=== PATIENT | female | born 1965 | race Caucasian/White ===

== ENCOUNTER 2016-06-06 17:45 | Emergency (ER) ==
[2016-06-06 18:02] VITALS: BP 104/71; TEMP 99.7; BMI 37.9
--- NOTE | 2016-06-06 18:09 | ED.PDOC ---
General Stated Complaint: feeling weak- soa pain right lateral ribs--unable to cook tonite;dizzy--occ cough --faint crackles to RUL[End]short of air this afternoon 99.7 96 20 98% 104/71 11/16. : 10/29/15 : Patient reports that her elbow to arm hurts since working last night. She reports that she went to sleep and woke up 3 different times and each time there has been pain in forearm and wrist. - Upper Extremity Complaint/Exam: Left, Elbow, Wrist: Tenderness, Limited range of motionED SPLINT APPLICATION .Left wrist sprain. Tramadol HCl [Ultram] 50 mg PO Q6H PRN #25 tablet. Penicillins Adverse Reaction. : 07/05/15 : Been hurting in the left shoulder and elbow, hurts to move and raise, has less gripp in the left hand. : Shoulder Sprain (ED). Needs evaluation for the CTS. Tramadol 50 po bid. Penicillins Adverse Reaction (Verified 07/05/15 21:50). Lisinopril 10 mg PO DAILY 07/05/15 Time Seen by Physician: 18:08 Mode of Arrival: Walk-In Information Source: Patient Exam Limitations: No limitations Nursing and Triage Documentation Reviewed and Agree: No <TERRI TOVAR JR - Last Filed: 06/06/16 18:29> <JÚNIOR GALLEGOS - Last Filed: 06/06/16 19:54> ED Provider: Dr. JÚNIOR GALLEGOS (TERRI TOVAR JR) (EL,JÚNIOR) Chief Complaint: Shortness of Air Primary Care Provider: DR SUSAN SHETES(MOVED BACK HERE PLANNING TO SEE DR FONTANEZ) (TERRI TOVAR JR) Review of Systems - Review Of Systems Constitutional: Reports: Malaise Eyes: Reports: No symptoms Ears, Nose, Mouth, Throat: Reports: No symptoms Respiratory: Reports: Cough, Short of air Cardiac: Reports: Chest pain GI: Reports: Abdominal pain (right lower quadrant), Nausea : Reports: No symptoms Musculoskeletal: Reports: No symptoms Skin: Reports: No symptoms Neurological: Reports: No symptoms Endocrine: Reports: No symptoms Hematologic/Lymphatic: Reports: No symptoms All Other Systems: Other <TERRI TOVAR JR - Last Filed: 06/06/16 18:29> Past Medical History - Past Medical History Previously Healthy: Yes Endocrine: Reports: None Cardiovascular: Reports: Hypertension Respiratory: Reports: None Hematological: Reports: None Gastrointestinal: Reports: None Genitourinary: Reports: None Neuro/Psych: Reports: None Musculoskeletal: Reports: Arthritis, Back Pain Cancer: Reports: None Last Menstrual Period: 3 weeks ago/irregular Other Pertinent Past Medical History: 1990 - Surgical History General Surgical History: Reports: ( 1990), Orthopedic (FEMUR /PELVIS FRACTURE 1988), Other (pelvic surgery , broken bones) - Family History Family History: Reports: Other (MOTHER WITH APPENDICITIS,CHOLECYSTECTOMY AND COLON CANCER AT ABOUT 62YO) - Social History Smoking Status: Current every day smoker, Light tobacco smoker Hx Substance Use: No Alcohol Screening: Occasionally <TERRI TOVAR JR - Last Filed: 06/06/16 18:29> Physical Exam - Physical Exam Appearance: Well-appearing, Obese Pain Distress: Moderate Eyes: JAMIE, EOMI, Conjunctiva clear ENT: Ears normal, Nose normal, Oropharynx normal Neck: Supple Respiratory: Airway patent, Breath sounds clear, Breath sounds equal, Respirations nonlabored Cardiovascular: RRR, Pulses normal, No rub, No murmur GI/: Soft, Tender (rlq and ruq tender both over appendix area and over gall bladder area) Musculoskeletal: Normal strength, ROM intact, No edema, No calf tenderness Skin: Warm, Dry, Normal color Neurological: Sensation intact, Motor intact, Reflexes intact, Cranial nerves intact, Alert, Oriented Psychiatric: Affect appropriate, Mood appropriate <TERRI TOVAR JR - Last Filed: 06/06/16 18:29> Interpretation - Radiology Interpretation Radiology Interpretation By: ED Physician Radiology Results: Negative Exam Interpreted: CXR (POSSIBLE FLUID BLUNTING RIGHT MEDIAL DIAPHRAGM), Other ( ABDOMEN STOOLA ND GAS CONSISTENT WITH NORMAL EXAM) <TERRI TOVAR JR - Last Filed: 06/06/16 18:29> Re-Evaluation - Re-Evaluation Time of Re-Evaluation: 19:52 Status: Improved Vital Signs Stable: Yes Pain Level: 0 Appearance: NAD Lungs: Clear Skin: Warm and Dry Neuro: Alert and Oriented X3 CV: RRR <JÚNIOR GALLEGOS - Last Filed: 06/06/16 19:54> Critical Care Note - Critical Care Note Total Time (mins): 5 <TERRI TOVAR JR - Last Filed: 06/06/16 18:29> - Critical Care Note Total Time (mins): 0 <JÚNIOR GALLEGOS - Last Filed: 06/06/16 19:54> Course <TERRI TOVAR JR - Last Filed: 06/06/16 18:29> - Course Hematology/Chemistry: 06/06/16 18:25 06/06/16 18:25 <JÚNIOR GALLEGOS - Last Filed: 06/06/16 19:54> - Course Orders, Labs, Meds: Lab Review 06/06/16 06/06/16 18:05 18:25 WBC 9.78 RBC 4.56 Hgb 13.7 Hct 41.0 MCV 89.9 MCH 30.0 MCHC 33.4 RDW Coeff of Matteo 12.7 Plt Count 261 Immature Gran % (Auto) 0.4 Neut % (Auto) 58.6 Lymph % (Auto) 34.3 Tift % (Auto) 5.1 Eos % (Auto) 1.3 Baso % (Auto) 0.3 Immature Gran # (Auto) 0.0 Neut # 5.7 Lymph # 3.4 Tift # 0.5 Eos # 0.1 Baso # 0.0 D-Dimer 0.31 Sodium 135 L Potassium 3.8 Chloride 102 Carbon Dioxide 23 Anion Gap 13.8 BUN 15 Creatinine 0.83 Estimated GFR (MDRD) 73.00 BUN/Creatinine Ratio 18.07 Glucose 116 H Lactic Acid 9.1 Calcium 9.1 Total Bilirubin 0.20 AST 14 L ALT 15 Alkaline Phosphatase 96 Total Creatine Kinase 53 Troponin I < 0.0100 B-Natriuretic Peptide 13 Total Protein 7.0 Albumin 3.5 Globulin 3.5 Albumin/Globulin Ratio 1.00 Procalcitonin < 0.05 Urine Color Yellow Urine Clarity Clear Urine pH 5.5 Ur Specific Superior 1.015 Urine Protein Negative Urine Glucose (UA) Negative Urine Ketones Negative Urine Blood Trace-intact Urine Nitrite Negative Urine Bilirubin Negative Urine Urobilinogen 0.2 Ur Leukocyte Esterase Trace Urine Microscopic RBC 2-5 Urine Microscopic WBC 0-2 Ur Squamous Epith Cells 2-5 Orders Category Date Time Status EKG-(ED ONLY) Stat CARDIO 06/06/16 18:08 Completed ED IV/MEDIPORT/POWERPORT .ONCE EMERGENCY 06/06/16 18:08 Active B-TYPE NATRIURETIC PEPTIDE Stat LAB 06/06/16 18:25 Completed BLOOD CULTURE Stat LAB 06/06/16 18:25 Received CBC W/ AUTO DIFF Stat LAB 06/06/16 18:25 Completed COMPREHENSIVE METABOLIC PANEL Stat LAB 06/06/16 18:25 Completed CREATINE KINASE Stat LAB 06/06/16 18:25 Completed D-DIMER Stat LAB 06/06/16 18:25 Completed LACTIC ACID Stat LAB 06/06/16 18:25 Completed PROCALCITONIN Stat LAB 06/06/16 18:25 Completed TROPONIN I Stat LAB 06/06/16 18:25 Completed UA [URINALYSIS C & S IF INDICATED] Stat LAB 06/06/16 18:05 Completed 0.9 % Sodium Chloride [Saline Flush] MEDS 06/06/16 18:08 Ordered 1 syr IVF PRN PRN Meperidine HCl/Pf [Demerol 50 mg/ml Syringe] MEDS 06/06/16 19:12 Discontinued 50 mg IM ONCE STA Promethazine HCl [Phenergan 25 mg/ml Vial] MEDS 06/06/16 19:12 Discontinued 25 mg IM ONCE STA ABDOMEN 1 VIEW Stat RADS 06/06/16 18:12 Taken CHEST, 2 VIEWS PA & LAT Stat RADS 06/06/16 18:[address] ABDOMEN/PELVIS WO CONTRAST Stat RADS 06/06/16 18:16 Completed Medications Generic Name Dose Route Start Last Admin Trade Name Freq PRN Reason Stop Dose Admin Sodium Chloride 1 syr 06/06/16 18:08 Saline Flush IVF PRN PRN To flush IV Discontinued Medications Generic Name Dose Route Start Last Admin Trade Name Freq PRN Reason Stop Dose Admin Meperidine HCl 50 mg 06/06/16 19:12 06/06/16 19:19 Demerol 50 Mg/Ml Syringe IM 06/06/16 19:13 50 mg ONCE STA Administration Promethazine HCl 25 mg 06/06/16 19:12 06/06/16 19:21 Phenergan 25 Mg/Ml Vial IM 06/06/16 19:13 25 mg ONCE STA Administration ms ibanez has ruq pain--relieved in injection) (TASNEEM-ER,JÚNIOR) Vital Signs: Temp Pulse Resp BP Pulse Ox 06/06/16 17:48 99.7 F H 96 H 20 104/71 98 (TERRI TOVAR JR) (TASNEEM-ER,JÚNIOR) Departure <TERRI TOVAR JR - Last Filed: 06/06/16 18:29> - Departure Time of Disposition: 19:53 Pt referred to PMD for follow-up: Yes Disposition Discussed With: Patient <JÚNIOR GALLEGOS - Last Filed: 06/06/16 19:54> - Departure Disposition: HOME SELF-CARE Discharge Problem: Abdominal pain Qualifiers: Abdominal location: right lower quadrant Qualifier Code: (R10.31) Right lower quadrant pain Condition: Good Additional Instructions: see dr fontanez--you will need xrays of the gb as outpatient Allergies/Adverse Reactions: Allergies Penicillins Adverse Reaction (Verified 06/06/16 17:55) Home Medications: Ambulatory Orders Lisinopril 10 mg PO DAILY 07/05/15
[2016-06-06 18:26] LABS: BILIRUBIN,URINE Negative (NEGATIVE); KETONES,URINE Negative (NEGATIVE); LEUKOCYTE ESTERASE ,URINE Trace (NEGATIVE); NITRITE,URINE Negative (NEGATIVE); PH,URINE 5.5 (5-9); PROTEIN,URINE Negative (NEGATIVE); URINE, BLOOD Trace-intact (NEGATIVE)
[2016-06-06 18:27] LABS: ADD URINE MICROSCOPIC YES
[2016-06-06 18:38] LABS: BASOPHILS % (AUTO) 0.3 % (0.0-3.0); EOSINOPHILS # (AUTO) 0.1 K/ul (0.0-0.7); EOSINOPHILS % (AUTO) 1.3 % (0.0-7.0); HEMOGLOBIN 13.7 g/dl (12.0-16.0); IMMATURE GRANULOCYTE % (AUTO) 0.4 % (0.0-5.0); LYMPHOCYTES # (AUTO) 3.4 K/uL (0.60-3.4); LYMPHOCYTES % (AUTO) 34.3 (10.0-50.0); MEAN CORPUSCULAR HGB CONC 33.4 (31.8-35.4); MEAN CORPUSCULAR VOLUME 89.9 fl (81.0-99.0); MONOCYTES # (AUTO) 0.5 K/uL (0.4-2.0); MONOCYTES % (AUTO) 5.1 (0-10); NEUTROPHILS # (AUTO) 5.7 K/ul (2.0-6.9); NEUTROPHILS % (AUTO) 58.6; PLATELET COUNT 261 10^3/uL (140-440); RED BLOOD COUNT 4.56 10^6/ul (4.20-5.40); WHITE BLOOD COUNT 9.78 K/ul (4.6-10.2)
[2016-06-06 19:03] LABS: ALANINE AMINOTRANSFERASE 15 U/L (12-78); ALBUMIN 3.5 g/dL (3.4-5.0); ALKALINE PHOSPHATASE 96 U/L (42-98); ANION GAP 13.8; ASPARTATE AMINO TRANSFERASE 14 U/L (15-37); BLOOD UREA NITROGEN 15 mg/dL (7-18); BUN/CREATININE RATIO 18.07; CALCIUM 9.1 mg/dL (8.2-10.2); CARBON DIOXIDE 23 mmol/L (21-32); CHLORIDE 102 mmol/L (98-107); CREATINE KINASE 53 U/L; CREATININE 0.83 mg/dL (0.60-1.30); GLUCOSE 116 mg/dL (70-110); POTASSIUM 3.8 mmol/L (3.5-5.10); SODIUM 135 mmol/L (136-145)
--- NOTE | 2016-06-06 19:06 | CT ---
EXAM: Noncontrast CT of the abdomen and pelvis. HISTORY: Abdominal pain. COMPARISON: None. TECHNIQUE: Contiguous axial images at 3 mm intervals were obtained from lung bases through the pelv is. No contrast was given. Coronal reformats were reviewed. FINDINGS: The study is limited without contrast. CHEST: The lung bases show no lobar consolidation or effusion. The heart size is within normal leahy its. ABDOMEN: Evaluation of the soft tissue organs is limited without contrast. LIVER: Noncontrast images of the liver show no solid mass lesion or intrahepatic ductal dilatation. BILIARY: The gallbladder is not well distended. No gallstones are noted. No pericholecystic fluid or inflammation. The common bile duct is normal. SPLEEN: The spleen is unremarkable. PANCREAS: The pancreas shows no mass lesion or peripancreatic inflammation. ADRENAL GLANDS: There is a small 1.6 cm low density nodule in the left adrenal gland.. RENAL: The kidneys show no hydronephrosis or nephrolithiasis. There are no obstructing ureteral st ones. No solid mass lesions are identified. RETROPERITONEUM: The aorta is unopacified. No aneurysm is identified. Minimal aortic calcificatio ns are seen. There is no retroperitoneal or mesenteric adenopathy. BOWEL: The bowel is unopacified. There is no obstruction or inflammatory change. There is no free fluid or free air. No significant inflammatory changes are seen. The appendix is identified an d is normal. PELVIS: BLADDER: The bladder is not well distended which limits evaluation.. GENITOURINARY STRUCTURES: The uterus and ovaries are unremarkable. OSSEOUS STRUCTURES: The osseous structures are normal for age. There are postoperative changes in the right hip. IMPRESSION 1. No acute intra-abdominal abnormality. Limited study without contrast. No obstructing ureteral stones. 2. The appendix is normal. 3. Probable small left adrenal adenoma.
[2016-06-06] MEDS ORDERED: DEMEROL 50 MG/ML SYRINGE IM STA (19:12)
[2016-06-06] MEDS ORDERED: PHENERGAN 25 MG/ML VIAL IM STA (19:12)
--- NOTE | 2016-06-07 07:34 | DI ---
EXAM: Chest two views HISTORY: Right chest wall pain, short of air COMPARISON: None TECHNIQUE: Two views of the chest were performed FINDINGS: The lungs are clear, excepting for granulomatous calcification. There is no pleural effu ronald or pneumothorax. The heart is normal in size. The mediastinal contour is normal. There are n o acute abnormalities of the bones. IMPRESSION: No acute cardiopulmonary process.
--- NOTE | 2016-06-07 07:35 | DI ---
EXAM: Single view of the abdomen HISTORY: Right lower quadrant pain. COMPARISON: Same day CT abdomen pelvis FINDINGS: There is stool and gas scattered throughout the colon in the abdomen pelvis. There is int ernal fixation hardware in the right proximal femur. The pelvic ring is intact. There are no dilat ed loops of bowel, air fluid levels, pneumatosis or portal venous gas. The osseous structures are u nremarkable. IMPRESSION: Nonobstructive bowel gas pattern.
== END 2016-06-06 20:10 | disposition home or self-care (01) ==
LOC: ED 17:45
DX: R10.31 Right lower quadrant pain (principal); R10.11 Right upper quadrant pain; R07.9 Chest pain, unspecified; R06.02 Shortness of breath; R05 Cough; I10 Essential (primary) hypertension; F17.210 Nicotine dependence, cigarettes, uncomplicated
CPT/HCPCS: 36415; 80053; 81001; 82550; 83605; 83880; 84145; 84484; 85025; 85379; 87040; 93005; 93010; 96365; 96375; 99284

== ENCOUNTER 2016-07-07 07:26 | Outpatient (CLI) ==
--- NOTE | 2016-07-07 09:01 | US ---
EXAM: Ultrasound abdomen limited. HISTORY: Upper abdominal pain. COMPARISON: CT 06/06/2016. TECHNIQUE: Abdominal, real time with image documentation: limited (eg, single organ, quadrant, fol low-up) FINDINGS: The liver demonstrates homogeneous echotexture without intrahepatic biliary dilatation. Portal venous flow is normal in direction. The gallbladder is without shadowing stones, wall thicke aly or pericholecystic fluid. Common duct measures approximately 0.5 cm. Visualized portions of t he pancreas are unremarkable. IMPRESSION: No sonographic abnormality of the liver, gallbladder or biliary system.
== END 2016-07-07 07:27 | disposition home or self-care (01) ==
LOC: RAD 07:26
PROVIDERS: ATTEND Family Medicine
DX: R10.10 Upper abdominal pain, unspecified (principal)

== ENCOUNTER 2016-07-28 08:55 | Outpatient (CLI) ==
--- NOTE | 2016-07-28 11:50 | NM ---
EXAM: Hepatobiliary imaging HISTORY: Right upper quadrant pain COMPARISON: Limited abdominal ultrasound on 07/07/2016 showed no abnormality. TECHNIQUE: Patient was injected 5.1 mCi of technetium 99m Choletec intravenously. Multiple anterior scintigraphic images of the right upper quadrant region of the abdomen were obtained up to 1 hour i nterval. The patient was infused 2 mcg of cholecystokinin intravenously. Gallbladder ejection frac tion was calculated. FINDINGS: There is normal visualization of liver, gallbladder, bile duct and small bowel loops. Gal lbladder ejection fraction is 81%. IMPRESSION: Normal study
== END 2016-07-28 08:56 | disposition home or self-care (01) ==
LOC: RAD 08:55
PROVIDERS: ATTEND Family Medicine
DX: R10.10 Upper abdominal pain, unspecified (principal); I10 Essential (primary) hypertension; J32.9 Chronic sinusitis, unspecified

== ENCOUNTER 2017-02-01 22:28 | Emergency (ER) ==
[2017-02-01 22:28] VITALS: BMI 34.9
[2017-02-01 22:39] VITALS: BP 127/87; TEMP 96.6
--- NOTE | 2017-02-01 22:46 | ED.PDOC ---
General ED Provider: Dr. JUDY REEVES Chief Complaint: Knee Pain/Injury Stated Complaint: Patient is a 51 year old female who comes to the ER with Right knee pain after while mopping slipped on wet floor, twisting her right knee under her. She did apply ice at home. Now has pain to right buttock radiating to back of right knee, pain to inner aspect of right knee, down the right osborn Time Seen by Physician: 22:46 Mode of Arrival: Walk-In Information Source: Patient Exam Limitations: No limitations Primary Care Provider: JÚNIOR BOATENG Nursing and Triage Documentation Reviewed and Agree: Yes Musculoskeletal Complaint Exam - Hip/Pelvis Complaint/Exam Location of Pain: Reports: Right, Hip Mechanism of Injury: Reports: Trauma (Fall ) Onset/Duration: one day Symptoms Are: Still present Initial Severity: Severe Current Severity: Moderate Location: Reports: Diffuse Character: Reports: Aching, Throbbing Aggravating: Reports: Movement, Weight bearing Associated Signs and Symptoms: Denies: Swelling, Redness, Bruising, Fever, Weakness, Dizziness, Syncope, Abdominal pain, Knee pain Able to Bear Weight: Yes Septic Arthritis Risk Factors: Reports: None Related Surgical History: Reports: None Pelvis Palpation: Stable Hip/Pelvis Findings: Absent: Extremity shortened, Swelling, Ecchymosis, Erythema , Warmth, Blisters - Knee Pain Complaint/Exam Mechanism of Injury: Reports: Trauma Onset/Duration: 1 day Symptoms Are: Still present Onset of Pain: Reports: Immediate Initial Severity: Severe Current Severity: Severe Location: Reports: Diffuse (right knee radiating to the right osborn) Character: Reports: Aching, Throbbing Alleviating: Reports: None Aggravating: Reports: Movement Associated Signs and Symptoms: Reports: Swelling (minimal). Denies: Redness, Bruising, Fever, Weakness, Numbness, Tingling Able to Bear Weight: Yes Septic Arthritis Risk Factors: Reports: None Gout Risk Factors: Reports: None Knee Findings: Present: Tenderness, Limited range of motion Tenderness: Present: Pre-patellar Eduin Test Positive: No Vanessa Test Positive: No Limited Range of Motion: Present: Active Knee Picture: 1 - tenderness Differential Diagnoses: Sprain, Strain Review of Systems - Review Of Systems Constitutional: Reports: No symptoms Eyes: Reports: No symptoms Ears, Nose, Mouth, Throat: Reports: No symptoms Respiratory: Reports: No symptoms Cardiac: Reports: No symptoms GI: Reports: No symptoms : Reports: No symptoms Musculoskeletal: Reports: Joint pain Skin: Reports: No symptoms Neurological: Reports: Anxiety Endocrine: Reports: No symptoms Hematologic/Lymphatic: Reports: No symptoms All Other Systems: Reviewed and Negative Past Medical History - Past Medical History Previously Healthy: Yes Endocrine: Reports: None Cardiovascular: Reports: Hypertension Respiratory: Reports: None Hematological: Reports: None Gastrointestinal: Reports: None Genitourinary: Reports: None Neuro/Psych: Reports: None Musculoskeletal: Reports: Arthritis, Back Pain Cancer: Reports: None Last Menstrual Period: 3 MONTHS AGO, PERIODS ARE IRREGULAR Other Pertinent Past Medical History: 1990 - Surgical History General Surgical History: Reports: ( 1990), Orthopedic (FEMUR /PELVIS FRACTURE 1988), Other (pelvic surgery , broken bones) - Family History Family History: Reports: Other (MOTHER WITH APPENDICITIS,CHOLECYSTECTOMY AND COLON CANCER AT ABOUT 62YO) - Social History Smoking Status: Current every day smoker, Light tobacco smoker Hx Substance Use: No Alcohol Screening: None - Immunizations Tetanus Shot up to Date: (UNKNOWN) Physical Exam - Physical Exam Appearance: Well-appearing, No pain distress, Well-nourished Eyes: JAMIE, EOMI, Conjunctiva clear ENT: Ears normal, Nose normal, Oropharynx normal Respiratory: Airway patent, Breath sounds clear, Breath sounds equal, Respirations nonlabored Cardiovascular: RRR, Pulses normal, No rub, No murmur GI/: Soft, Nontender, No masses, Bowel sounds normal, No Organomegaly Musculoskeletal: Limited ROM (due to pain on the left hip. ) Skin: Warm, Dry Neurological: Sensation intact, Motor intact, Reflexes intact, Cranial nerves intact, Alert, Oriented Psychiatric: Affect appropriate, Mood appropriate Interpretation - Radiology Interpretation Radiology Interpretation By: Radiologist Radiology Results: Positive Exam Interpreted: Other (Fracture of michela) Physician Notification - Case Discussed Physician Notified: Dr Mcwilliams Time of Notification: 01:21 (Follow up in the clinic in the morning. ) Critical Care Note - Critical Care Note Total Time (mins): 0 Course - Course Orders, Labs, Meds: Orders Category Date Time Status Ketorolac Tromethamine [Toradol] MEDS 02/01/17 23:50 Discontinued 60 mg IM ONCE STA FEMUR, RIGHT 2 VIEWS Stat RADS 02/01/17 23:49 Completed KNEE, RIGHT 4 VIEWS Stat RADS 02/01/17 22:53 Completed PELVIS 1 OR 2 VIEWS Stat RADS 02/01/17 23:35 Completed Medications Discontinued Medications Generic Name Dose Route Start Last Admin Trade Name Freq PRN Reason Stop Dose Admin Ketorolac Tromethamine 60 mg 02/01/17 23:50 02/02/17 00:08 Toradol IM 02/01/17 23:51 60 mg ONCE STA Administration Vital Signs: Temp Pulse Resp BP Pulse Ox 02/01/17 22:28 96.6 F L 88 18 127/87 96 Departure - Departure Time of Disposition: 23:59 Disposition: HOME SELF-CARE Discharge Problem: Knee pain Sprain hip/thigh Qualifiers: Encounter type: initial encounter Laterality: right Qualified Code(s): S73.101A - Unspecified sprain of right hip, initial encounter Instructions: Knee Sprain (ED), Hip Pain (ED) Condition: Fair Pt referred to PMD for follow-up: Yes Additional Instructions: Rest Take pain medications as prescribe Follow up with PCP in 3 day Follow up [facility]. Go straight to the walk in clinic. It is open from 8am-8 pm with one hour lunch at noon Prescriptions: Hydrocodone/Acetaminophen [[place] 5-325 Tablet] 1 tab PO Q6HR PRN #12 tablet PRN Reason: PAIN Ibuprofen [Motrin] 600 mg PO Q6H PRN #30 tablet PRN Reason: Analgesia Allergies/Adverse Reactions: Allergies Penicillins Adverse Reaction (Verified 02/01/17 22:38) Home Medications: Ambulatory Orders Lisinopril 20 mg PO DAILY 07/05/15 Hydrocodone/Acetaminophen [[place] 5-325 Tablet] 1 tab PO Q6HR PRN #12 tablet Ibuprofen [Motrin] 600 mg PO Q6H PRN #30 tablet 02/02/17 Disposition Discussed With: Patient, Family
--- NOTE | 2017-02-01 23:17 | DI ---
EXAM: Right knee, four views, 02/01/2017 HISTORY: Fall. Trauma COMPARISON: None. FINDINGS / IMPRESSION: Normal anatomic alignment is maintained. Mild osteoarthritic degenerative ch ena. Intramedullary elier within the distal femur appears well positioned. The extensor mechanism is intact. No acute osseous abnormality.
[2017-02-01] MEDS ORDERED: TORADOL IM STA (23:50)
[2017-02-01] MEDS ORDERED: NORCO 5-325 ONE (23:55)
--- NOTE | 2017-02-02 00:17 | DI ---
EXAM: AP single view of the pelvis. HISTORY: Fall. Right hip pain. FINDINGS: There is an intramedullary elier in the visualized portion of the proximal right femur. There is a transverse nondisplaced fracture through the proximal end of the intramedullary elier. The visua lized bones are intact with no evidence of acute fracture. The joint spaces are maintained. Impression: No evidence of acute bone fracture. Fractured intramedullary elier in the right femur as described.
--- NOTE | 2017-02-02 00:21 | DI ---
EXAM: Two views of the right femur. HISTORY: Fall. FINDINGS: There is an old healed fracture of the mid right femur. No evidence of an acute bone fract ure. There is an intramedullary elier in the right femur. There is a transverse nondisplaced fracture through the proximal end of the intramedullary elier. The joint spaces are maintained. No soft tissue abnormality. Impression: No evidence of an acute bone fracture. Old healed fracture of the mid right femur. Fracture intramedullary elier as described.
[2017-02-02] MEDS ORDERED: ED AFTER HOURS SUPPLY MED SENT HOME PO ONE ×2 (01:23→01:34)
[2017-02-02] MEDS ORDERED: NORCO 5-325 ONE (01:34)
== END 2017-02-02 01:39 | disposition home or self-care (01) ==
LOC: ED 22:28
DX: M25.561 Pain in right knee (principal); S73.101A Unspecified sprain of right hip, initial encounter; W01.0XXA Fall on same level from slipping, tripping and stumbling without subsequent striking against object, initial encounter; F17.210 Nicotine dependence, cigarettes, uncomplicated
CPT/HCPCS: 96372; 99283

== ENCOUNTER 2017-03-07 23:22 | Emergency (ER) ==
[2017-03-07 23:37] VITALS: BP 119/85; TEMP 98; BMI 36.6
--- NOTE | 2017-03-07 23:43 | ED.PDOC ---
General ED Provider: Dr. ASHLEY MOSHER Chief Complaint: Nausea/Vomiting Stated Complaint: Vomiting and diarrhea for 2 days. no abdominal pain. Time Seen by Physician: 23:41 Mode of Arrival: Walk-In Information Source: Patient Primary Care Provider: JÚNIOR BOATENG Nursing and Triage Documentation Reviewed and Agree: Yes GI Complaint Exam - Vomiting/Diarrhea Complaint/Exam Symptoms Are: Still present Episodes of Vomiting over last 24 Hours: 4 Episodes of Diarrhea Over Last 24 Hours: 2 Initial Severity: Mild Current Severity: Mild Character of Vomiting: Reports: Non-bilious Character of Diarrhea: Reports: Watery Aggravating: Reports: Food Alleviating: Reports: None Associated Signs and Symptoms: Denies: Dizziness, Light-headedness, Melena, Hematemesis, Fever, Abdominal pain, Cramping Non-GI Risk Factors: Reports: None Surgical Obstruction Risk Factors: Reports: None Related Surgical History: Reports: None Abdominal Findings: Absent: Pulsatile mass, Abdominal distention, Unequal femoral pulses Differential Diagnoses: Viral Gastroenteritis Review of Systems - Review Of Systems Constitutional: Reports: No symptoms Eyes: Reports: No symptoms Ears, Nose, Mouth, Throat: Reports: No symptoms Respiratory: Reports: No symptoms Cardiac: Reports: No symptoms GI: Reports: Diarrhea, Nausea, Vomiting : Reports: No symptoms Musculoskeletal: Reports: No symptoms Skin: Reports: No symptoms Neurological: Reports: No symptoms Endocrine: Reports: No symptoms Hematologic/Lymphatic: Reports: No symptoms All Other Systems: Reviewed and Negative Past Medical History - Past Medical History Previously Healthy: Yes Endocrine: Reports: None Cardiovascular: Reports: Hypertension Respiratory: Reports: None Hematological: Reports: None Gastrointestinal: Reports: None Genitourinary: Reports: None Neuro/Psych: Reports: None Musculoskeletal: Reports: Arthritis, Back Pain Cancer: Reports: None Last Menstrual Period: 6-7 MONTHS AGO Other Pertinent Past Medical History: 1990 - Surgical History General Surgical History: Reports: ( 1990), Orthopedic (FEMUR /PELVIS FRACTURE 1988), Other (pelvic surgery , broken bones) - Family History Family History: Reports: Other (MOTHER WITH APPENDICITIS,CHOLECYSTECTOMY AND COLON CANCER AT ABOUT 62YO) - Social History Smoking Status: Current every day smoker, Light tobacco smoker Smoking Cessation Counseling Time: > 3 min - 10 min Hx Substance Use: No Alcohol Screening: None - Immunizations Tetanus Shot up to Date: (UNKNOWN) Physical Exam - Physical Exam Appearance: Ill-appearing, Obese Eyes: JAMIE, EOMI, Conjunctiva clear ENT: Ears normal, Nose normal, Oropharynx normal Respiratory: Airway patent, Breath sounds clear, Breath sounds equal, Respirations nonlabored Cardiovascular: RRR, Pulses normal, No rub, No murmur GI/: Soft, Nontender, No masses, Bowel sounds normal, No Organomegaly Musculoskeletal: Normal strength, ROM intact, No edema, No calf tenderness Skin: Warm, Dry, Normal color Neurological: Sensation intact, Motor intact, Reflexes intact, Cranial nerves intact, Alert, Oriented Psychiatric: Affect appropriate, Mood appropriate Critical Care Note - Critical Care Note Total Time (mins): 30 Course - Course Orders, Labs, Meds: Orders Category Date Time Status CBC W/ AUTO DIFF Stat LAB 03/07/17 23:50 Received COMPREHENSIVE METABOLIC PANEL Stat LAB 03/07/17 23:50 Received URINALYSIS C & S IF INDICATED Stat LAB 03/07/17 23:45 Received Vital Signs: Temp Pulse Resp BP Pulse Ox 03/07/17 23:23 98 F 90 20 119/85 96 Departure - Departure Time of Disposition: 23:43 Disposition: HOME SELF-CARE Discharge Problem: Gastroenteritis Instructions: Gastroenteritis (ED) Condition: Good Pt referred to PMD for follow-up: Yes Additional Instructions: Increase hydration Soft diet for 3-4 days Prescriptions: Ondansetron HCl [Zofran] 4 mg PO TID #14 tablet Allergies/Adverse Reactions: Allergies Penicillins Adverse Reaction (Verified 03/07/17 23:36) Home Medications: Ambulatory Orders Lisinopril 20 mg PO DAILY 07/05/15 Ibuprofen [Motrin] 600 mg PO Q6H PRN #30 tablet 02/02/17 Ondansetron HCl [Zofran] 4 mg PO TID #14 tablet 03/07/17 Disposition Discussed With: Patient
[2017-03-07 23:57] LABS: BASOPHILS % (AUTO) 0.3 % (0.0-3.0); EOSINOPHILS # (AUTO) 0.1 K/ul (0.0-0.7); EOSINOPHILS % (AUTO) 1.1 % (0.0-7.0); HEMATOCRIT 44.2 % (37.0-47.0); IMMATURE GRANULOCYTE % (AUTO) 0.3 % (0.0-5.0); LYMPHOCYTES # (AUTO) 3.6 K/uL (0.60-3.4); MEAN CORPUSCULAR HEMOGLOBIN 30.4 pg (27.0-31.0); MEAN CORPUSCULAR HGB CONC 33.9 (31.8-35.4); MEAN CORPUSCULAR VOLUME 89.7 fl (81.0-99.0); MONOCYTES # (AUTO) 0.5 K/uL (0.4-2.0); MONOCYTES % (AUTO) 5.3 (0-10); NEUTROPHILS # (AUTO) 5.6 K/ul (2.0-6.9); PLATELET COUNT 251 10^3/uL (140-440); RED BLOOD COUNT 4.93 10^6/ul (4.20-5.40); WHITE BLOOD COUNT 9.91 K/ul (4.6-10.2)
[2017-03-08 00:04] LABS: ADD URINE MICROSCOPIC NO; BILIRUBIN,URINE Negative (NEGATIVE); KETONES,URINE Negative (NEGATIVE); LEUKOCYTE ESTERASE ,URINE Negative (NEGATIVE); NITRITE,URINE Negative (NEGATIVE); PH,URINE 5.5 (5-9); PROTEIN,URINE Negative (NEGATIVE); URINE, BLOOD Negative (NEGATIVE)
[2017-03-08 00:17] LABS: ALBUMIN 3.6 g/dL (3.4-5.0); ALBUMIN/GLOBULIN RATIO 0.88; ANION GAP 15.2; BILIRUBIN,TOTAL 0.2 mg/dL (0.00-1.20); BUN/CREATININE RATIO 22.5; CALCIUM 10.1 mg/dL (8.2-10.2); CREATININE 0.8 mg/dL (0.60-1.30); POTASSIUM 4.2 mmol/L (3.5-5.10); TOTAL PROTEIN 7.7 g/dL (6.4-8.2)
[2017-03-08] MEDS ORDERED: ZOFRAN 4 MG/2 ML IM STA (00:27)
[2017-03-08] MEDS ORDERED: ZOFRAN 4 MG/2 ML ONE (00:27)
== END 2017-03-08 00:52 | disposition home or self-care (01) ==
LOC: ED 23:22
DX: K52.9 Noninfective gastroenteritis and colitis, unspecified (principal); F17.210 Nicotine dependence, cigarettes, uncomplicated
CPT/HCPCS: 36415; 80053; 81001; 85025; 96372; 99283

== ENCOUNTER 2017-04-04 09:11 | Emergency (ER) ==
[2017-04-04 09:17] VITALS: BP 117/80; TEMP 97.8; BMI 38.7
[2017-04-04] MEDS ORDERED: DUONEB NEB STA (09:25)
[2017-04-04] MEDS ORDERED: DECADRON 4 MG/ML SDV IM STA (09:25)
--- NOTE | 2017-04-04 10:15 | DI ---
Exam: Two x-rays of the chest. Comparison: CT chest performed 11/29/2016. Reason for exam: Cough. FINDINGS: No pneumothorax, pleural effusion, or focal consolidation. The cardiac silhouette is not enlarged. The imaged osseous structures appear grossly unremarkable without acute fracture. Impression: No acute cardiopulmonary process.
--- NOTE | 2017-04-04 10:38 | ED.PDOC ---
General ED Provider: Dr. VERO RUBIO Chief Complaint: Respiratory Complaint Stated Complaint: COUGH, WHEEZ Time Seen by Physician: 09:17 Mode of Arrival: Walk-In Information Source: Family Exam Limitations: No limitations Primary Care Provider: JÚNIOR BOATENG Nursing and Triage Documentation Reviewed and Agree: Yes Reviewed sepsis parameters & appropriate labs ordered?: Yes System Inflammatory Response Syndrome: Not Applicable Sepsis Protocol: For patient's 13 years and over: Temp is 96.8 and below OR 101 and greater Pulse >90 BPM Resp >20/minute Acutely Altered Mental Status Are patient's symptoms suggestive of a new infection, such as: -Pneumonia -Skin, Soft Tissue -Endocarditis -UTI -Bone, Joint Infection -Implantable Device -Acute Abdominal Infection -Wound Infection -Meningitis -Blood Stream Catheter Infection -Unknown Review of Systems - Review Of Systems Constitutional: Reports: Malaise Eyes: Reports: No symptoms Ears, Nose, Mouth, Throat: Reports: No symptoms Respiratory: Reports: Cough Cardiac: Reports: No symptoms GI: Reports: No symptoms : Reports: No symptoms Musculoskeletal: Reports: No symptoms Skin: Reports: No symptoms Neurological: Reports: No symptoms Endocrine: Reports: No symptoms Hematologic/Lymphatic: Reports: No symptoms All Other Systems: Reviewed and Negative Past Medical History - Past Medical History Previously Healthy: Yes Endocrine: Reports: None Cardiovascular: Reports: Hypertension Respiratory: Reports: None Hematological: Reports: None Gastrointestinal: Reports: None Genitourinary: Reports: None Neuro/Psych: Reports: None Musculoskeletal: Reports: Arthritis, Back Pain Cancer: Reports: None Last Menstrual Period: 6 months ago Other Pertinent Past Medical History: 1990 - Surgical History General Surgical History: Reports: ( 1990), Orthopedic (FEMUR /PELVIS FRACTURE 1988), Other (pelvic surgery , broken bones) - Family History Family History: Reports: Other (MOTHER WITH APPENDICITIS,CHOLECYSTECTOMY AND COLON CANCER AT ABOUT 62YO) - Social History Smoking Status: Current every day smoker, Light tobacco smoker Hx Substance Use: No Alcohol Screening: None Physical Exam - Physical Exam Appearance: Well-appearing, No pain distress, Well-nourished Eyes: JAMIE, EOMI, Conjunctiva clear ENT: Ears normal, Nose normal, Oropharynx normal Respiratory: Airway patent, Breath sounds clear, Respirations nonlabored, Rhonchi Cardiovascular: RRR, Pulses normal, No rub, No murmur GI/: Soft, Nontender, No masses, Bowel sounds normal, No Organomegaly Musculoskeletal: Normal strength, ROM intact, No edema, No calf tenderness Skin: Warm, Dry, Normal color Neurological: Sensation intact, Motor intact, Reflexes intact, Cranial nerves intact, Alert, Oriented Psychiatric: Affect appropriate, Mood appropriate Critical Care Note - Critical Care Note Total Time (mins): 0 Course - Course Hematology/Chemistry: 04/04/17 09:30 04/04/17 09:30 Orders, Labs, Meds: Lab Review 04/04/17 04/04/17 04/04/17 09:30 09:30 09:40 WBC 7.57 RBC 4.54 Hgb 14.1 Hct 41.9 MCV 92.3 MCH 31.1 H MCHC 33.7 RDW Coeff of Matteo 13.2 Plt Count 220 Immature Gran % (Auto) 0.3 Neut % (Auto) 64.3 Lymph % (Auto) 29.2 [place] % (Auto) 4.8 Eos % (Auto) 1.1 Baso % (Auto) 0.3 Immature Gran # (Auto) 0.0 Neut # 4.9 Lymph # 2.2 [place] # 0.4 Eos # 0.1 Baso # 0.0 Sodium 141 Potassium 4.1 Chloride 106 Carbon Dioxide 29 Anion Gap 10.1 BUN 15 Creatinine 0.79 Estimated GFR (MDRD) 77.00 BUN/Creatinine Ratio 18.98 Glucose 140 H Calcium 9.3 Total Bilirubin 0.3 AST 12 L ALT 16 Alkaline Phosphatase 97 Total Protein 6.8 Albumin 3.3 L Globulin 3.5 Albumin/Globulin Ratio 0.94 Influenza A (Rapid) Negative by naat Influenza B (Rapid) Negative by naat Orders Category Date Time Status NEBULIZER TREATMENT Stat CARDIO 04/04/17 09:25 Completed CBC W/ AUTO DIFF Stat LAB 04/04/17 09:30 Completed COMPREHENSIVE METABOLIC PANEL Stat LAB 04/04/17 09:30 Completed MOLECULAR FLU A/B Stat LAB 04/04/17 09:40 Completed MOLECULAR GROUP A STREP Stat LAB 04/04/17 09:40 Results STREP SCREEN Stat LAB 04/04/17 09:40 Results Dexamethasone 4 mg/ml Inj [Decadron 4 mg/ml Sdv] MEDS 04/04/17 09:25 Discontinued 8 mg IM ONCE STA Ipratropium/Albuterol Neb [Duoneb] MEDS 04/04/17 09:25 Discontinued 1 vial NEB ONCE STA CHEST, 2 VIEWS PA & LAT Stat RADS 04/04/17 09:23 Completed Medications Discontinued Medications Generic Name Dose Route Start Last Admin Trade Name Imani PRN Reason Stop Dose Admin Albuterol/Ipratropium 1 vial 04/04/17 09:25 04/04/17 09:32 Duoneb NEB 04/04/17 09:26 1 vial ONCE STA Administration Dexamethasone Sodium Phosphate 8 mg 04/04/17 09:25 04/04/17 10:02 Decadron 4 Mg/Ml Sdv IM 04/04/17 09:26 8 mg ONCE STA Administration Vital Signs: Temp Pulse Resp BP Pulse Ox 04/04/17 09:12 97.8 F 88 20 117/80 96 Departure - Departure Time of Disposition: 10:41 Disposition: HOME SELF-CARE Discharge Problem: Bronchitis Instructions: Acute Bronchitis (ED), Wheezing (ED) Condition: Good Pt referred to PMD for follow-up: Yes Additional Instructions: Please call your Family Physician as soon as possible to schedule a follow-up appointment. Prescriptions: Azithromycin [Zithromax] 500 mg PO DIRECTED #6 tablet Allergies/Adverse Reactions: Allergies Penicillins Adverse Reaction (Verified 04/04/17 09:20) Home Medications: Ambulatory Orders Lisinopril 20 mg PO DAILY 07/05/15 Ibuprofen [Motrin] 600 mg PO Q6H PRN #30 tablet 02/02/17 Ondansetron HCl [Zofran] 4 mg PO TID #14 tablet 03/07/17 Azithromycin [Zithromax] 500 mg PO DIRECTED #6 tablet 04/04/17
== END 2017-04-04 10:48 | disposition home or self-care (01) ==
LOC: ED 09:11
DX: J40 Bronchitis, not specified as acute or chronic (principal); F17.210 Nicotine dependence, cigarettes, uncomplicated
CPT/HCPCS: 36415; 80053; 85025; 87502; 87651; 87880; 94640; 96372; 99283

== ENCOUNTER 2017-05-25 18:48 | Emergency (ER) ==
--- NOTE | 2017-05-25 18:56 | ED.PDOC ---
General ED Provider: Dr. JÚNIOR BOATENG-ER Chief Complaint: Tooth Problem Stated Complaint: my tooth is swollen Time Seen by Physician: 18:54 Mode of Arrival: Walk-In Information Source: Patient Exam Limitations: No limitations Primary Care Provider: JÚNIOR BOATENG Nursing and Triage Documentation Reviewed and Agree: Yes Reviewed sepsis parameters & appropriate labs ordered?: Yes System Inflammatory Response Syndrome: Not Applicable Sepsis Protocol: For patient's 13 years and over: Temp is 96.8 and below OR 101 and greater Pulse >90 BPM Resp >20/minute Acutely Altered Mental Status Are patient's symptoms suggestive of a new infection, such as: -Pneumonia -Skin, Soft Tissue -Endocarditis -UTI -Bone, Joint Infection -Implantable Device -Acute Abdominal Infection -Wound Infection -Meningitis -Blood Stream Catheter Infection -Unknown EENT Complaint Exam - Dental/Oral Complaint/Exam Mechanism of Injury: No known trauma Onset/Duration: 4 8hrs Symptoms Are: Still present Timing: Constant Initial Severity: Mild Current Severity: Moderate Location: right upper incisor Character: Reports: Dull, Aching, Throbbing Aggravating: Reports: Heat, Cold, Chewing Alleviating: Reports: None Associated Signs and Symptoms: Reports: Swelling. Denies: Discharge, Fever, Foul odor, Foul taste in mouth Tooth Findings: Present: Percussion tenderness, Gross decay, Gross caries Cervical Lymphadenopathy Present: No Facial Swelling Present: Yes Septal Hematoma: No Foreign Body Present: No Dysphagia Present: No Drooling Present: No Asymmetrical Tonsillar Swelling Present: No Uvula Midline: Yes Anita-tonsillar Fluctuence: No Trismus Present: No Palatal Petechiae Present: No Scarlatinaform Rash Present: No Differential Diagnoses: Dental Abcess Review of Systems - Review Of Systems Constitutional: Reports: No symptoms Eyes: Reports: No symptoms Ears, Nose, Mouth, Throat: Reports: Mouth swelling Respiratory: Reports: No symptoms Cardiac: Reports: No symptoms GI: Reports: No symptoms : Reports: No symptoms Musculoskeletal: Reports: No symptoms Skin: Reports: No symptoms Neurological: Reports: No symptoms Endocrine: Reports: No symptoms Hematologic/Lymphatic: Reports: No symptoms All Other Systems: Reviewed and Negative Past Medical History - Past Medical History Previously Healthy: Yes Endocrine: Reports: None Cardiovascular: Reports: Hypertension Respiratory: Reports: None Hematological: Reports: None Gastrointestinal: Reports: None Genitourinary: Reports: None Neuro/Psych: Reports: None Musculoskeletal: Reports: Arthritis, Back Pain Cancer: Reports: None Last Menstrual Period: N/A Other Pertinent Past Medical History: 1990 - Surgical History General Surgical History: Reports: ( 1990), Orthopedic (FEMUR /PELVIS FRACTURE 1988), Other (pelvic surgery , broken bones) - Family History Family History: Reports: Other (MOTHER WITH APPENDICITIS,CHOLECYSTECTOMY AND COLON CANCER AT ABOUT 62YO) - Social History Smoking Status: Current every day smoker, Light tobacco smoker Hx Substance Use: No Alcohol Screening: None - Immunizations Tetanus Shot up to Date: No Physical Exam - Physical Exam Appearance: Well-appearing, No pain distress, Well-nourished Pain Distress: Mild Eyes: JAMIE, EOMI, Conjunctiva clear ENT: Ears normal, Nose normal, Oropharynx normal (exam does confirm upper right incisor with surrounding erythema and swelling) Neck: Supple Respiratory: Airway patent, Breath sounds clear, Breath sounds equal, Respirations nonlabored Cardiovascular: RRR, Pulses normal, No rub, No murmur GI/: Soft, Nontender, No masses, Bowel sounds normal, No Organomegaly Musculoskeletal: Normal strength, ROM intact, No edema, No calf tenderness Skin: Warm, Dry, Normal color Neurological: Sensation intact, Motor intact, Reflexes intact, Cranial nerves intact, Alert, Oriented Psychiatric: Affect appropriate, Mood appropriate Critical Care Note - Critical Care Note Total Time (mins): 0 Course - Course Vital Signs: Temp Pulse Resp BP Pulse Ox 05/25/17 18:49 99.9 F H 119 H 20 150/107 H 96 Departure - Departure Time of Disposition: 18:56 Disposition: HOME SELF-CARE Discharge Problem: Dental abscess Instructions: Dental Abscess (ED) Condition: Good Pt referred to PMD for follow-up: Yes IPMP verified?: No Additional Instructions: clindamycin 300mg qid x 7 days #28--norco 7.5mg q 4hrs prn pain #10--peridex rinse 15ml bid --f/u with dentist Allergies/Adverse Reactions: Allergies Penicillins Adverse Reaction (Verified 05/25/17 18:53) Home Medications: Ambulatory Orders Lisinopril 20 mg PO DAILY 07/05/15 Ibuprofen [Motrin] 600 mg PO Q6H PRN #30 tablet 02/02/17 Ondansetron HCl [Zofran] 4 mg PO TID #14 tablet 03/07/17 Azithromycin [Zithromax] 500 mg PO DIRECTED #6 tablet 04/04/17 Disposition Discussed With: Patient
[2017-05-25 18:57] VITALS: BP 150/107; TEMP 99.9; BMI 34.9
== END 2017-05-25 19:00 | disposition home or self-care (01) ==
LOC: ED 18:48
DX: K04.7 Periapical abscess without sinus (principal); K02.7 Dental root caries; F17.210 Nicotine dependence, cigarettes, uncomplicated
CPT/HCPCS: 99282

== ENCOUNTER 2018-02-04 08:16 | Outpatient (CLI) ==
--- NOTE | 2018-02-04 09:24 | MAMMO ---
EXAM: Bilateral digital diagnostic mammogram (2-D and 3-D) History: Left breast mass. Comparison: Bilateral mammogram 04/28/2016 Findings: MLO and CC views of bilateral breasts demonstrate scattered fibroglandular breast parenchy ma. CAD was reviewed by the radiologist. Tomosynthesis was performed. There are no dominant masses, no suspicious microcalcifications and no architectural distortions Impression: Although no mammographic abnormalities are identified, recommend further evaluation with left breast ultrasound to evaluate the palpable event. BIRADS 0
--- NOTE | 2018-02-04 09:30 | US ---
EXAM: Left breast ultrasound. History: Left breast palpable abnormality. Comparison: Bilateral mammogram 02/04/2018 Technique: Multiple sonographic images through the left breast were obtained. Color duplex Doppler was used to interrogate vascular flow. Findings: Within the skin of the left breast at 6 o'clock 5 cm from nipple there is a 1.3 cm x 0.4 c m x 1.4 cm cystic mass with internal echoes and surrounding hypervascularity. No other masses are id entified. Impression: Cystic mass within the skin of the left breast is most likely an infected sebaceous cyst and is benign. Follow up clinically. Patient can resume routine screening mammography schedule. BIRADS 2
== END 2018-02-04 08:17 | disposition home or self-care (01) ==
LOC: RAD 08:16
PROVIDERS: ATTEND Physician Assistant
DX: N63.23 Unspecified lump in the left breast, lower outer quadrant (principal)